=== PATIENT | male | born 1985 | race Caucasian/White ===

== ENCOUNTER 2021-07-04 16:24 | Emergency (ER) | payer MEDICAID ==
[~2021-07-04] VITALS: Ht 182.9 cm; Wt 79.4 kg
--- NOTE | 2021-07-04 16:52 | NUR ---
Patient ambulatory, alert and orientedx4 with complaints of bilateral lower ext redness and swelling on right lower ext, pt stated spider bite 2 days ago. Denies nausea/vomiting,chest pain, abdominal pain, SOB. Vitals stable.
--- NOTE | 2021-07-04 16:53 | NUR ---
MD at bedside, medical screening exam in progress.
[2021-07-04] MEDS ORDERED: IV NORMAL SALINE 100 ML BAG IV ONE ×2 (17:00→18:15)
[2021-07-04] MEDS ORDERED: CLINDAMYCIN PHOSPHATE IV 600 MG in IV DEXTROSE 5% 100 ML IV ONE (17:00)
[2021-07-04] MEDS ORDERED: CLINDAMYCIN PHOSPHATE 600 MG/4 ML VIAL ONE (17:12)
[2021-07-04 17:29] LABS: MEAN CORPUSCULAR HEMOGLOBIN 32.3 uug (23.8-33.4); MEAN CORPUSCULAR VOLUME 91.2 fL (73.0-96.2); PLATELET COUNT (AUTO) 171 K/uL (152-348)
[2021-07-04 17:47] LABS: BILIRUBIN,TOTAL 1.1 mg/dL (0.2-1.0); CREATININE 0.8 mg/dL (0.6-1.3); POTASSIUM 3.1 mmol/L (3.5-5.1); TOTAL PROTEIN, SERUM 6.9 g/dL (6.4-8.2)
[2021-07-04] MEDS ORDERED: CEFTRIAXONE 1 G in IV DEXTROSE 5% 50 ML IV ONE (18:15)
[2021-07-04 18:20] LABS: *AMPHETAMINE, URINE POSITIVE (NEGATIVE); *CANNABINOID, URINE NEGATIVE (NEGATIVE); *COCCAINE, URINE NEGATIVE (NEGATIVE); *OPIATE, URINE NEGATIVE (NEGATIVE); *PHENCYCLIDINE SCREEN,URINE NEGATIVE (NEGATIVE)
[2021-07-04] MEDS ORDERED: CEFTRIAXONE /D5W 50ML IVPB **ER PYXIS IV ONE (18:29)
[2021-07-04] MEDS ORDERED: POTASSIUM CHLORIDE 20 MEQ TAB.PRT.SR PO ONE (18:30)
[2021-07-04] MEDS ORDERED: POTASSIUM CHLORIDE 20 MEQ TAB.PRT.SR ONE (18:30)
[2021-07-04] MEDS ORDERED: CLIN300C12 PO (18:43)
--- NOTE | 2021-07-04 19:44 | NUR ---
Patient discharged to home in stable condition. Written and verbal after care instructions given. Patient verbalizes understanding of instructions. Stressed follow up or return to ER for worsening s/s. pt ambulated with steady gait. Denies pain. no SOB. no chest pain. AOx4
[2021-07-04 19:45] VITALS: BP 117/70
== END 2021-07-04 19:45 | disposition home or self-care (01) ==
LOC: ER 16:39
DX: S90.862A Insect bite (nonvenomous), left foot, initial encounter (principal); S90.861A Insect bite (nonvenomous), right foot, initial encounter; L03.115 Cellulitis of right lower limb; L03.116 Cellulitis of left lower limb; W57.XXXA Bitten or stung by nonvenomous insect and other nonvenomous arthropods, initial encounter; Y93.89 Activity, other specified; Y92.89 Other specified places as the place of occurrence of the external cause; Y99.8 Other external cause status
CPT/HCPCS: 36415; 80053; 80307; 83605 ×2; 83880; 85025; 85610; 86140; 96365; 96375; 99284; J0696; J3490 ×2; J7040 ×2; A4663

== ENCOUNTER 2021-07-08 23:15 | Emergency (ER) | payer MEDICAID ==
[~2021-07-08] VITALS: Ht 182.9 cm; Wt 79.4 kg
[~2021-07-08 23:15] MED LIST: CLIN300C12 PO
--- NOTE | 2021-07-08 23:55 | NUR ---
Dr Gonsalves into eval patient.
--- NOTE | 2021-07-09 00:15 | NUR ---
DILAN handed me DC instructions for the pt and told me to DC pt davida.
--- NOTE | 2021-07-09 00:20 | NUR ---
Pt given DC instructions and confirmed understanding of aftercare, some education provided on how to manage swelling and pain. Pt aaox4, no health issues, otherwise completely healthy. Pt signed out and escorted out of the dept with steady gait. Pt very thankful for services received.
[2021-07-09 01:43] VITALS: BP 120/71
== END 2021-07-09 00:20 | disposition home or self-care (01) ==
LOC: ER 23:21
DX: R60.0 Localized edema (principal); L03.115 Cellulitis of right lower limb
CPT/HCPCS: A4663